=== PATIENT | female | born 1975 | race Caucasian/White ===

== ENCOUNTER → 2017-06-14 | Outpatient (CLI) | payer OTHER ==
--- NOTE | 2017-06-14 15:46 | Diagnostic Imaging Report ---
Bilateral screening mammogram 2D views with tomosynthesis. The current study was also evaluated with a Computer Aided Detection (CAD) system. INDICATION: Screening. No current complaints stated on the questionnaire. COMPARISON: 08/07/13 FINDINGS: The breasts are composed of heterogeneously dense parenchyma which may decrease mammographic sensitivity. There is no mass, architectural distortion or suspicious cluster of calcification. Allowing for technique and positional differences, no suspicious change is seen. IMPRESSION: Dense breasts with no definite change. ACR BI-RADS Category 2: Benign findings. Result letter will be mailed to the patient. Note: At least 10% of breast cancer is not imaged by mammography. Dictated by: Dictated on workstation # [id number]
== END ==
LOC: RAD 09:06
PROVIDERS: ATTEND Nurse Practitioner Family
DX: Z12.31 Encounter for screening mammogram for malignant neoplasm of breast (principal)
CPT/HCPCS: 77067

== ENCOUNTER 2017-09-19 07:57 | Emergency (ER) | payer SELFPAY ==
[~2017-09-19] VITALS: Ht 160 cm; Wt 65.8 kg
--- OUTSIDE RECORDS SUMMARY | 2017-09-19 08:02 | XMS REPORT ---
Author Author RELL GREWAL Organization [facility] Address [address] [place] [address] Care Team Providers Care Facility Attendant Name Role Phone RELL GREWAL Unavailable PROBLEMS Type Condition ICD9-CM Code [id number] Code Onset Dates Condition Status SNOMED Code Problem Encounter for dental examination Z01.20 Active 832681721 Problem Acquired hypothyroidism E03.9 Active 473734232 Assessment Splinter T14.8 Jul, Active 223689762 ALLERGIES Substance Reaction Event Type Date Status N.K.D.A. Unknown Non Drug Allergy Jul, Unknown SOCIAL HISTORY No smoking Hx information available PLAN OF CARE VITAL SIGNS Height 63 in 2016-08-03 Weight 152.3 lbs 2016-08-03 Heart Rate 74 bpm 2016-08-03 Respiratory Rate 18 2016-08-03 BMI 26.98 kg/m2 2016-08-03 Blood pressure systolic 128 mmHg 2016-08-03 Blood pressure diastolic 84 mmHg 2016-08-03 MEDICATIONS Medication Instructions Dosage Frequency Start Date End Date Duration Status Bactrim DS 800-160 MG Orally Twice a day 1 tablet 12h Jul,Jul 07 days Active Levothyroxine Sodium 50 MCG Orally Once a day 1 tablet 24h Active RESULTS Name Result Date Reference Range TSH 2016-08-03 TSH 2.760 0.450-4.500 PROCEDURES Procedure Date Ordered Related Diagnosis Body Site ASSAY THYROID STIM HORMONE Aug 03, 2016 Office Visit, Est Pt., Level 4 Aug 03, 2016 VENIPUNCT, ROUTINE* Aug 03, 2016 IMMUNIZATIONS No Known Immunizations
--- OUTSIDE RECORDS SUMMARY | 2017-09-19 08:03 | XMS REPORT ---
Author Author RELL GREWAL [facility] Address [address] [place] [address] Care Team Providers Care Technical Project Lead Name Role Phone RELL GREWAL Unavailable PROBLEMS Type Condition ICD9-CM Code [id number]-[id number] Code Onset Dates Condition Status SNOMED Code Problem Acquired hypothyroidism E03.9 Active 577478587 ALLERGIES Unknown Allergies SOCIAL HISTORY No smoking Hx information available PLAN OF CARE VITAL SIGNS MEDICATIONS Medication Instructions Dosage Frequency Start Date End Date Duration Status Levothyroxine Sodium 50 MCG Orally Once a day 1 tablet 24h Active RESULTS No Results PROCEDURES No Known procedures IMMUNIZATIONS No Known Immunizations
--- OUTSIDE RECORDS SUMMARY | 2017-09-19 08:03 | XMS REPORT ---
Author ANITA Wild Organization [employer] Address Unknown Phone Unavailable Care Team Providers Care Grinding Machine Tender Name Role Phone ANITA ALMONTE CP Unavailable Allergies, Adverse Reactions, Alerts Substance Reaction Event Type N.K.D.A. Info Not Available Non Drug Allergy Problems Problem Type Condition Code Onset Dates Condition Status Problem Influenza with other respiratory manifestations 487.1 Active Problem Fever, unspecified 780.60 Active Problem Encounter for dental examination and cleaning without abnormal findings Z01.20 Active Assessment Encounter for dental examination and cleaning without abnormal findings Z01.20 Active Medications Medication Code System Code Instructions Start Date End Date Status Dosage Claritin [facility] [address]-96 not defined Procedures Procedure Coding System Code Date INTRAORL-PERIAPICAL 1 FILM 97046 CPT-4 D0220 Oct 15, 2015 INTRAORL-PERIAPICAL EA ADD FILM CPT-4 D0230 Oct 15, 2015 PERIODIC ORAL EXAMINATION CPT-4 D0120 Oct 15, 2015 BITEWINGS - FOUR FILMS CPT-4 D0274 Oct 15, 2015 INTRAORL-PERIAPICAL EA ADD FILM CPT-4 D0230 Oct 15, 2015 TOPICAL FLUORIDE VARNISH CPT-4 D1206 Oct 15, 2015 PROPHYLAXIS - ADULT CPT-4 D1110 Oct 15, 2015 Vital Signs Date/Time: Oct 15, 2015 Blood Pressure Diastolic 87 mmHg Blood Pressure Systolic 149 mmHg Height 63 in Results No Known Results Summary Purpose [employer] Submission
--- OUTSIDE RECORDS SUMMARY | 2017-09-19 08:03 | XMS REPORT | Continuity of Care Document ---
Author Author [facility] Organization [facility] Address Unknown Phone Unavailable Allergies Medications Problems Date Dx Coded Attending Type Code Diagnosis Diagnosed By 11/26/2013 LETY KELLER APRN 487.1 INFLUENZA WITH OTHER RESPIRATORY MANIFESTATIONS 11/26/2013 LETY KELLER APRN 780.60 FEVER UNSPECIFIED Procedures Code [place] [address] STREP A (IN-HOUSE) 11/26/2013 [address]40 INFLUENZA A & B (IN-HOUSE) 11/26/2013 Results Encounters ACCT No. Visit Date/Time Discharge Status Pt. Type Provider Facility Loc./Unit Complaint [id number] 06/14/2017 09:06:00 2016 23:59:59 CLS Outpatient MARYCRUZ WINTER [facility] RAD SCREENING Z12.39 [id number] 08/07/2013 12:49:00 2012 23:59:59 CLS Outpatient [id number] 07/25/2013 09:58:00 2012 23:59:59 CLS Outpatient [id number] 11/26/2013 13:10:00 11/26/2013 23: 59:59 CLS Outpatient LETY KELLER APRN
--- OUTSIDE RECORDS SUMMARY | 2017-09-19 08:03 | XMS REPORT ---
Author Author RELL GREWAL Organization [facility] Address [address] [place] [address] Care Team Providers Care Brass And Wind Instrument Repairer Name Role Phone AMANDAOusmane RELL Unavailable PROBLEMS Type Condition ICD9-CM Code JHQ64-QL Code Onset Dates Condition Status SNOMED Code Problem Encounter for dental examination Z01.20 Active 373745977 Problem Acquired hypothyroidism E03.9 Active 987522094 Assessment Splinter T14.8 Jul, Active 103649000 Assessment Abscess of finger, right L02.511 Jul, Active 74688017 ALLERGIES Substance Reaction Event Type Date Status N.K.D.A. Unknown Non Drug Allergy Jul, Unknown SOCIAL HISTORY No smoking Hx information available PLAN OF CARE VITAL SIGNS Height 63 in 2016-08-09 Weight 148.5 lbs 2016-08-09 Heart Rate 78 bpm 2016-08-09 Respiratory Rate 18 2016-08-09 BMI 26.30 kg/m2 2016-08-09 Blood pressure systolic 102 mmHg 2016-08-09 Blood pressure diastolic 68 mmHg 2016-08-09 MEDICATIONS Medication Instructions Dosage Frequency Start Date End Date Duration Status Bactrim DS 800-160 MG Orally Twice a day 1 tablet 12h 07 days Active Levothyroxine Sodium 50 MCG Orally Once a day 1 tablet 24h Active ProAir HFA 108 (90 Base) MCG/ACT Inhalation every 6 hours 2 puffs as needed 6h Jan, Active Claritin Active RESULTS Name Result Date Reference Range CULTURE, AEROBIC 2016-08-09 Aerobic Bacterial Culture Final report Result 1 PROCEDURES Procedure Date Ordered Related Diagnosis Body Site Office Visit, Est Pt., Level 4 Aug 09, 2016 CULTURE, BACTERIA, OTHER Aug 09, 2016 THER/PROPH/DIAG INJ, SC/IM Aug 09, 2016 ROCEPHIN 1 GM (IM) Aug 09, 2016 IMMUNIZATIONS Vaccine Route Administration Date Status ROCEPHIN 1 GM (IM) IM Intramuscular Aug 09, 2016 Administered
--- OUTSIDE RECORDS SUMMARY | 2017-09-19 08:03 | XMS REPORT ---
Author Author RELL GREWAL Organization [employer] Address Unknown Phone Unavailable Care Team Providers Care Turbine Blade Assembler Name Role Phone RELL GREWAL CP Unavailable Allergies No Known Allergies Problems Problem Type Condition Code Onset Dates Condition Status Problem Acquired hypothyroidism E03.9 Active Problem Encounter for dental examination Z01.20 Active Medications Medication Code System Code Instructions Start Date End Date Status Dosage Levothyroxine Sodium [facility] [address]-40 50 MCG Orally Once a day 1 tablet Results No Known Results Summary Purpose [employer] Submission
--- OUTSIDE RECORDS SUMMARY | 2017-09-19 08:03 | XMS REPORT ---
Author Author RELL GREWAL Organization [employer] Address Unknown Phone Unavailable Care Team Providers Care Safety Scientist Name Role Phone RELL GREWAL CP Unavailable Allergies No Known Allergies Problems Problem Type Condition Code Onset Dates Condition Status Problem Acquired hypothyroidism E03.9 Active Problem Encounter for dental examination Z01.20 Active Medications Medication Code System Code Instructions Start Date End Date Status Dosage Levothyroxine Sodium [facility] [address]-64 50 MCG Orally Once a day 1 tablet Results No Known Results Summary Purpose [employer] Submission
--- OUTSIDE RECORDS SUMMARY | 2017-09-19 08:03 | XMS REPORT ---
Author Author RELL GREWAL Organization [facility] Address [address] [place] [address] Care Team Providers Care Technical Editor Name Role Phone RELL GREWAL Unavailable PROBLEMS Type Condition ICD9-CM Code SID98-TN Code Onset Dates Condition Status SNOMED Code Problem Acquired hypothyroidism E03.9 Active 906862494 ALLERGIES No Known Allergies SOCIAL HISTORY Never Assessed PLAN OF CARE Activity Details Follow Up 6 months Reason:TSH VITAL SIGNS Height 63 in 2017-01-17 Weight 154.3 lbs 2017-01-17 Temperature 98.7 degrees Fahrenheit 2017-01-17 Heart Rate 77 bpm 2017-01-17 Respiratory Rate 18 2017-01-17 BMI 27.33 kg/m2 2017-01-17 Blood pressure systolic 119 mmHg 2017-01-17 Blood pressure diastolic 76 mmHg 2017-01-17 MEDICATIONS Medication Instructions Dosage Frequency Start Date End Date Duration Status Levothyroxine Sodium 50 MCG Orally Once a day 1 tablet 24h Active ProAir HFA 108 (90 Base) MCG/ACT Inhalation every 6 hours 2 puffs as needed 6h Jan, Active Claritin Active Tylenol Active RESULTS Name Result Date Reference Range TSH 2017-01-17 TSH 2.800 0.450-4.500 CMP 2017-01-17 Glucose, Serum 93 65-99 BUN 11 6-24 Creatinine, Serum 0.72 0.57-1.00 eGFR If NonAfricn Am 103 >59 eGFR If Africn Am 119 >59 BUN/Creatinine Ratio 15 9-23 Sodium, Serum 139 134-144 Potassium, Serum 4.4 3.5-5.2 Chloride, Serum 104 96-106 Carbon Dioxide, Total 21 18-29 Calcium, Serum 9.3 8.7-10.2 Protein, Total, Serum 7.1 6.0-8.5 Albumin, Serum 4.3 3.5-5.5 Globulin, Total 2.8 1.5-4.5 A/G Ratio 1.5 1.1-2.5 Bilirubin, Total 0.9 0.0-1.2 Alkaline Phosphatase, S 53 39-117 AST (SGOT) 15 0-40 ALT (SGPT) 18 0-32 PROCEDURES Procedure Date Ordered Result Body Site ASSAY THYROID STIM HORMONE January 17, 2017 COMPREHEN METABOLIC PANEL January 17, 2017 VENIPUNCT, ROUTINE* January 17, 2017 IMMUNIZATIONS No Known Immunizations MEDICAL (GENERAL) HISTORY Type Description Date Medical History Bronchitis Medical History hypythyroidism Surgical History scar removed Surgical History tubal ligation Hospitalization History tubal ligation
--- OUTSIDE RECORDS SUMMARY | 2017-09-19 08:03 | XMS REPORT ---
Author Author RYAN CHANDRA [facility] Address Unknown Care Team Providers Care Digital Media Analyst Name Role Phone CORAZONRYAN Unavailable PROBLEMS Type Condition ICD9-CM Code [id number] Code Onset Dates Condition Status SNOMED Code Problem Encounter for dental examination Z01.20 Active 366677393 Problem Acquired hypothyroidism E03.9 Active 342067503 Assessment Dental examination Z01.20 Jun, Active 815442970 ALLERGIES Substance Reaction Event Type Date Status N.K.D.A. Unknown Non Drug Allergy Jun, Unknown SOCIAL HISTORY No smoking Hx information available PLAN OF CARE VITAL SIGNS Height 63 in 2016-07-04 Blood pressure systolic 126 mmHg 2016-07-04 Blood pressure diastolic 87 mmHg 2016-07-04 MEDICATIONS Medication Instructions Dosage Frequency Start Date End Date Duration Status Levothyroxine Sodium 50 MCG Orally Once a day 1 tablet 24h Active RESULTS No Results PROCEDURES Procedure Date Ordered Related Diagnosis Body Site RESIN COMPOS - 2 SURFACES POSTERIOR Jul 04, 2016 OCCLUSAL ADJUSTMENT - LIMITED Jul 04, 2016 IMMUNIZATIONS No Known Immunizations
[2017-09-19] MEDS ORDERED: LEVO50TA6 PO (08:16)
[2017-09-19] MEDS ORDERED: cefTRIAXone INJECTION 1,000 MG in NS (IVPB) 50 ML IV ONE (08:30)
[2017-09-19] MEDS ORDERED: FAMOTIDINE 20MG/2ML IV (PEPCID) IVP ONE (08:30)
[2017-09-19] MEDS ORDERED: methylPREDNISolone 125 MG (Solu-MEDROL) VIAL IVP ONE (08:30)
[2017-09-19 08:56] LABS: BASOPHILS % (AUTO) 0 % (0-10); EOSINOPHILS % (AUTO) 0 % (0-10); LYMPHOCYTES # (AUTO) 0.7 X 10^3 (1.0-4.0); LYMPHOCYTES % (AUTO) 11 % (12-44); MEAN CORPUSCULAR HEMOGLOBIN 28 PG (25-34); MEAN CORPUSCULAR HGB CONC 34 G/DL (32-36); MEAN CORPUSCULAR VOLUME 83 FL (80-99); MEAN PLATELET VOLUME 10.7 FL (7.4-10.4); MONOCYTES # (AUTO) 0.4 X 10^3 (0.0-1.0); MONOCYTES % (AUTO) 5 % (0-12); NEUTROPHILS # (AUTO) 5.6 X 10^3 (1.8-7.8); NEUTROPHILS % (AUTO) 84 % (42-75); PLATELET COUNT 252 10^3/uL (130-400); RED BLOOD COUNT 4.86 10^6/uL (4.35-5.85); RED CELL DISTRIBUTION WIDTH 14.1 % (10.0-14.5); WHITE BLOOD COUNT 6.7 10^3/uL (4.3-11.0)
[2017-09-19] MEDS ORDERED: CEFU500T63 PO (09:42)
[2017-09-19] MEDS ORDERED: METR500T PO (09:42)
--- NOTE | 2017-09-19 09:42 | ED General ---
General Chief Complaint: Allergic Reaction Stated Complaint: POSSIBLE ALLERGIC RXN Nursing Triage Note: Pt c/o generalized hives and itching. Pt also c/o R sided facial swelling. pt states she was seen by dentist Sunday for cavity and put on amoxicillin. Pt then began to have facial swelling yesterday and dentist switched her antibiotics to clindamycin. Pt reports she woke up this morning with hives and itching and no improvement in facial swelling. Nursing Sepsis Screen: No Definite Risk Source of Information: Patient Exam Limitations: No Limitations History of Present Illness Time Seen by Provider: 08:15 Initial Comments This 42-year-old woman presents to the emergency room with concerns about possible allergic reaction to clindamycin. She is currently being treated for a suspected dental abscess. She started having right jaw pain on Sunday. She followed up with her dentist due to intensifying pain. She was placed on amoxicillin but swelling worsened. She was then switched to clindamycin. She has taken 4 doses thus far. Her symptoms have not worsened since changing to clindamycin but she has now developed diffuse erythema and itching. Symptoms are suspicious for allergy to clindamycin. She denies any fevers. She has not taken any medications for the rash. She is taking Tylenol and ibuprofen for the pain. Allergies and Home Medications Allergies Coded Allergies: clindamycin (Verified Allergy, Mild, HIVES, 09/19/17) Home Medications Cefuroxime Axetil 500 Mg Tablet, 500 MG PO BID, #20 Prescribed by: FARHAD BARRETT on 09/19/17 0942 Levothyroxine Sodium 50 Mcg Tablet, 50 MCG PO DAILY, (Reported) Metronidazole 500 Mg Tablet, 500 MG PO QID, #40 Prescribed by: FARHAD BARRETT on 09/19/17 0942 Constitutional: no symptoms reported EENTM: see HPI Respiratory: no symptoms reported Cardiovascular: no symptoms reported Gastrointestinal: no symptoms reported Genitourinary: no symptoms reported : No Musculoskeletal: no symptoms reported Skin: see HPI Psychiatric/Neurological: No Symptoms Reported Hematologic/Lymphatic: No Symptoms Reported Immunological/Allergic: no symptoms reported Past Ytlgijb-Gaerzf-Tirycy Hx Patient Social History Alcohol Use: Denies Use Recreational Drug Use: No Smoking Status: Never a Smoker Recent Foreign Travel: No Contact w/Someone Who Travel: No Recent Infectious Disease Expo: No Recent Hopitalizations: No Seasonal Allergies Seasonal Allergies: No Surgeries History of Surgeries: Yes (scar removal from L arm) Respiratory History of Respiratory Disorde: No Cardiovascular History of Cardiac Disorders: No Neurological History of Neurological Disord: No Genitourinary History of Genitourinary Disor: No Gastrointestinal History of Gastrointestinal Di: No Musculoskeletal History of Musculoskeletal Dis: No Endocrine History of Endocrine Disorders: Yes Endocrine Disorders: Hypothyroidsim HEENT History of HEENT Disorders: No Cancer History of Cancer: No Psychosocial History of Psychiatric Problem: No Integumentary History of Skin or Integumenta: No Blood Transfusions History of Blood Disorders: No Physical Exam Vital Signs Vital Sign - Last 12Hours 09/19/17 08:11 Temp 97.9 Pulse 89 Resp 18 B/P (MAP) 145/95 Pulse Ox 99 O2 Delivery Room Air Capillary Refill : Less Than 3 Seconds General Appearance: No Apparent Distress, WD/WN HEENT: PERRL/EOMI, TMs Normal, Normal ENT Inspection, Other (Induration, erythema, and tenderness to the gingiva lateral to the right lower molars. No fluctuance or overt abscess noted.) Neck: Normal Inspection, Supple, No Lymphadenopathy (L), No Lymphadenopathy (R) Respiratory: Lungs Clear, Normal Breath Sounds, No Accessory Muscle Use, No Respiratory Distress Cardiovascular: Regular Rate, Rhythm, No Edema, No Murmur Extremity: Normal Inspection Neurologic/Psychiatric: Alert, Oriented x3, No Motor/Sensory Deficits, Normal Mood/Affect, health program analyst II-XII Norm as Tested Skin: Warm/Dry, Rash (Rash throughout the trunk and extremities, pruritic and erythematous) Progress/Results/Core Measures Results/Orders Lab Results Laboratory Tests Test 09/19/17 08:45 Range/Units White Blood Count 6.7 4.3-11.0 10^3/uL Red Blood Count 4.86 4.35-5.85 10^6/uL Hemoglobin 13.8 11.5-16.0 G/DL Hematocrit 40 35-52 % Mean Corpuscular Volume 83 80-99 FL Mean Corpuscular Hemoglobin 28 25-34 PG Mean Corpuscular Hemoglobin Concent 34 32-36 G/DL Red Cell Distribution Width 14.1 10.0-14.5 % Platelet Count 252 130-400 10^3/uL Mean Platelet Volume 10.7 H 7.4-10.4 FL Neutrophils (%) (Auto) 84 H 42-75 % Lymphocytes (%) (Auto) 11 L 12-44 % Monocytes (%) (Auto) 5 0-12 % Eosinophils (%) (Auto) 0 0-10 % Basophils (%) (Auto) 0 0-10 % Neutrophils # (Auto) 5.6 1.8-7.8 X 10^3 Lymphocytes # (Auto) 0.7 L 1.0-4.0 X 10^3 Monocytes # (Auto) 0.4 0.0-1.0 X 10^3 Eosinophils # (Auto) 0.0 0.0-0.3 10^3/uL Basophils # (Auto) 0.0 0.0-0.1 10^3/uL C-Reactive Protein High Sensitivity 4.44 H 0.00-0.50 MG/DL My Orders Orders - FARHAD SLATER MD Saline Lock/Iv-Start (09/19/17 08:23) Cbc With Automated Diff (09/19/17 08:23) Hs C Reactive Protein (09/19/17 08:23) Famotidine Injection (Pepcid Injection) (09/19/17 08:30) Ceftriaxone Injection (Rocephin Injectio (09/19/17 08:30) Methylprednisolone Sod Succ (Solu-Medrol (09/19/17 08:30) Medications Given in ED Current Medications Medications Dose Ordered Sig/John Route Start Time Stop Time Status Last Admin Dose Admin Ceftriaxone Sodium 1000 mg/ Sodium Chloride 50 ml @ 100 mls/hr ONCE ONCE IV 09/19/17 08:30 09/19/17 08:59 DC 09/19/17 08:51 100 MLS/HR Famotidine 20 mg ONCE ONCE IVP 09/19/17 08:30 09/19/17 08:31 DC 09/19/17 08:50 20 MG Methylprednisolone Sodium Succinate 62.5 mg ONCE ONCE IVP 09/19/17 08:30 09/19/17 08:31 DC 09/19/17 08:49 62.5 MG Vital Signs/I&O Vital Sign - Last 12Hours 09/19/17 09/19/17 08:11 09:50 Temp 97.9 97.9 Pulse 89 77 Resp 18 18 B/P (MAP) 145/95 Pulse Ox 99 99 O2 Delivery Room Air Blood Pressure Mean: 112 Progress Note : Progress Note Patient received Pepcid and Solu-Medrol for treatment of the rash. This resolved the itching. Benadryl was not used due to patient's need to drive home. She will take Benadryl upon returning home. A dose of Rocephin was given by IV route for expedited treatment of her oral cellulitis/dental abscess. Clindamycin was entered as an allergy in her chart. Labs were reviewed. There was no leukocytosis. CRP was modestly elevated. Return precautions were discussed. Patient was offered Toradol for pain management but declined. Departure Impression Impression: Primary Impression: Dental abscess Additional Impression: Antibiotic-induced allergic rash Disposition: HOME, SELF-CARE Condition: Improved Departure-Patient Inst. Decision time for Depature: 09:35 Referrals: SMILEY DICKERSON DO (PCP) Primary Care Physician RELL GREWAL (Family) Primary Care Physician Patient Instructions: Tooth Abscess (DC), Drug Allergy Add. Discharge Instructions: Follow-up with your dentist as soon as possible. Complete antibiotics as prescribed. Return to the emergency room if symptoms worsen, especially if you develop fevers greater than 100. You may continue using Tylenol (acetaminophen ) and/or ibuprofen for pain. You may take Benadryl (diphenhydramine) up to 50 mg every 4 hours as needed for further rash and itching. Return to the ER if you have worsening allergic symptoms such as difficulty breathing, swelling of the tongue or throat, worsening rash and itching, etc. All discharge instructions reviewed with patient and/or family. Voiced understanding. Scripts Metronidazole (Flagyl) 500 Mg Tablet 500 MG PO QID, #40 TAB Prov: FARHAD SLATER MD 09/19/17 Cefuroxime Axetil (Cefuroxime) 500 Mg Tablet 500 MG PO BID, #20 TAB Prov: FARHAD SLATER MD 09/19/17 FARHAD SLATER MD Sep 19, 2017 09:42
[2017-09-19 09:50] VITALS: BP 122/78
== END 2017-09-19 09:51 | disposition home or self-care (01) ==
LOC: EDUNIT# 07:57 → ER 07:58
DX: L27.0 Generalized skin eruption due to drugs and medicaments taken internally (principal); K04.7 Periapical abscess without sinus; E03.9 Hypothyroidism, unspecified; T36.8X5A Adverse effect of other systemic antibiotics, initial encounter
CPT/HCPCS: 36415; 85025; 86141

== ENCOUNTER → 2020-08-06 | Outpatient (CLI) | payer OTHER ==
[~2020-08-06] MED LIST: CEFU500T63 PO; LEVO50TA6 PO; METR500T PO
--- NOTE | 2020-08-06 17:15 | Diagnostic Imaging Report ---
INDICATION: Routine screening. COMPARISON is made with prior mammograms from 06/14/2017 and 07/25/2013. 2-D and 3-D bilateral screening mammography was performed with CAD. Both breasts show marked parenchymal heterogeneity and increased density, limiting the sensitivity of mammography. Benign nodules in both breasts appear stable. No new mass or malignant appearing microcalcifications are seen. Axillae are unremarkable. IMPRESSION: BI-RADS Category 2. No mammographic features suspicious for malignancy are identified. ACR BI-RADS Category 2: Benign findings. Result letter will be mailed to the patient. Note: At least 10% of breast cancer is not imaged by mammography. Dictated by: Dictated on workstation # [id number]
== END ==
LOC: RAD 07:30
PROVIDERS: ATTEND Nurse Practitioner
DX: Z12.31 Encounter for screening mammogram for malignant neoplasm of breast (principal)
CPT/HCPCS: 77063; 77067